=== PATIENT | male | born 1950 | race Caucasian/White ===

== ENCOUNTER → 2018-04-11 | Outpatient (CLI) | payer MEDICARE, OTHER ==
[~2018-04-11] MED LIST: ASPIRIN 32325 MG/TAB PO; NORCO 325 MG-51 TAB PO
== END ==
LOC: COL.RAD 12:45
DX: N50.89 Other specified disorders of the male genital organs (principal)

== ENCOUNTER 2018-09-24 15:01 | Emergency (ER) | payer MEDICARE, OTHER ==
[~2018-09-24] VITALS: Ht 172.7 cm; Wt 79.5 kg
[2018-09-24 15:21] VITALS: TEMP 98.2
[2018-09-24] MEDS ORDERED: CEPHALEXIN500 M1 PO (19:46)
[2018-09-24 19:56] VITALS: BP 149/80; PULSE 70
== END 2018-09-24 19:56 | disposition home or self-care (01) ==
LOC: COL.ER 15:01
DX: S61.211A Laceration without foreign body of left index finger without damage to nail, initial encounter (principal); Z23 Encounter for immunization; W26.8XXA Contact with other sharp object(s), not elsewhere classified, initial encounter; Y92.009 Unspecified place in unspecified non-institutional (private) residence as the place of occurrence of the external cause

== ENCOUNTER → 2018-10-08 | Emergency (ER) | payer MEDICARE, OTHER ==
[~2018-10-08] MED LIST changes: +CEPHALEXIN500 M1 PO
[2018-10-08 09:01] VITALS: BP 144/87; PULSE 70; TEMP 98.8
== END ==
LOC: COL.ER 08:44
DX: S61.201D Unspecified open wound of left index finger without damage to nail, subsequent encounter (principal)